=== PATIENT | female | born 1995 | race Caucasian/White ===

== ENCOUNTER 2018-12-12 01:36 | Emergency (ER) | payer OTHER, MEDICAID, SELFPAY ==
[2018-12-12 01:43] VITALS: BP 129/80; PULSE 90; RESP 18; TEMP 37; O2SAT 100
[2018-12-12] MEDS: AMOXICILLIN/CLAV 875/125 MG 1 TAB PO (01:54)
[2018-12-12] MEDS: TET,DIPH,PERTUSS(ACELL),VAC/PF 0.5 ML SYRINGE IM (01:54)
[2018-12-12] MEDS: LIDO 1%/SOD BICARB 8.4% (10ML) 10 ML SYRINGE INJ (01:54)
--- NOTE | 2018-12-12 02:08 | PC.NURSE ---
She had #2 puncture wounds on right lower calf,one medial and one lateral, cleaned the wounds and applied two sutures to medial puncture wound.
[2018-12-12 02:20] VITALS: BP 119/70; PULSE 76; RESP 18; O2SAT 99
--- NOTE | 2018-12-12 03:48 | ED_ITS ---
HPI - Animal Bite General Chief Complaint: Animal Bite Stated Complaint: HER dog bit her leg while breaking up fight Time Seen by Provider: 12/12/18 01:36 Source: patient Mode of arrival: Ambulatory Limitations: no limitations History of Present Illness HPI narrative: 23F daily smoker without significant medical history presents for evaluation of a dog bite on her left leg. Her dog and her brother's dog were fighting and she got in between them and was bitten on her leg. The dogs have been acting normal and can be observed for the next 7-10 days. She has a small amount of pain and minimal bleeding from two punctures on her left lower leg. Her tetanus is in need of updating. She is otherwise well and free of complaint. MD complaint: animal bite Onset (ago): hour(s) Animal: dog Description of animal: household pet Mechanism: bite Location - Extremities: Left: lower leg Pain description: sharp Context: animals fighting Associated symptoms: none Treatments prior to arrival: wound dressing(s) Related Data Patient tetanus UTD: No Previous Rx's Medication Instructions Recorded amoxicillin-pot clavulanate 1 tab PO BID #20 tab 12/12/18 [Augmentin] Allergies Allergy/AdvReac Type Severity Reaction Status Date / Time No Known Drug Allergies Allergy Verified 12/12/18 02:00 Review of Systems Constitutional Constitutional: Denies chills, Denies fatigue, Denies fever(s), Denies frequent falls, Denies lethargy and Denies weakness Eyes Eyes: Denies change in vision, Denies eye discharge, Denies irritation and Denies loss of vision ENT Ears, Nose, Mouth, and Throat: Denies change in voice, Denies dizziness, Denies neck pain, Denies sore throat and Denies throat swelling Cardiovascular Cardiovascular: Denies chest pain, Denies irregular heart rhythm, Denies lightheadedness, Denies palpitations, Denies dyspnea, Denies dyspnea on exertion and Denies orthopnea Respiratory Respiratory: Denies cough, Denies dyspnea, Denies dyspnea on exertion and Denies wheezing Gastrointestinal Gastrointestinal: Denies abdominal pain, Denies change in bowel habits, Denies diarrhea, Denies nausea and Denies vomiting Genitourinary Genitourinary: Denies hematuria, Denies flank pain, Denies urinary incontinence and Denies urinary urgency Musculoskeletal Musculoskeletal: Denies back pain, Denies muscle weakness, Denies neck pain, Denies numbness and Denies tingling Integumentary/Breasts Skin/Breast: Denies pruritus, Denies erythema, Denies rash and Reports wounds Neurologic Neurologic: Denies behavioral changes, Denies confusion, Denies dizziness, Denies frequent falls, Denies loss of vision, Denies numbness, Denies tingling and Denies weakness Psychiatric Psychiatric: Denies anxiety, Denies behavioral changes, Denies confusion, Denies depression, Denies homicidal ideation and Denies suicidal ideation Endocrine Endocrine: Denies fatigue, Denies flushing and Denies palpitations Hematologic/Lymphatic Hematologic/Lymphatic: Denies easy bruising Allergic/Immunologic Allergic/Immunologic: Denies urticaria, Denies throat swelling and Denies wheezing Patient History Social History Smoking Status: Current every day smoker Social History Smoking Status: Current every day smoker alcohol intake frequency: a few times a month Substance Use Type: marijuana Exam Narrative Exam Narrative: GEN: AOx3 and in mild distress EYES: Pupils are equal, round, and reactive to light and accommodation. Ex traoccular muscles are intact bilaterally. There is no subconjunctival hemorrhage or exudate. CHEST: Lungs are clear to auscultation bilaterally and free of wheezes, rales, or rhonchi. Heart rate is regular rhythm, there are no murmurs, clicks, rubs, or gallops. There is no chest wall tenderness. ABD: Abdomen is soft and nontender. There is no guarding or rebound. Bowel sounds are normal in all 4 quadrants. There is no mass or organomegaly. EXT: 2 small punctures on left lower leg. 1st is 0.5cm with no active bleeding, the second of which is 1.0cm and slightly agape and there is some exposure of subQ fat, this will need a few sutures. Full painless ROM of all extremities with no loss of sensation or strength. SKIN: Warm, pink, and dry. No erythema or rash Initial Vital Signs Initial Vital Signs: Vital Signs Temperature 98.6 F 12/12/18 01:43 Pulse Rate 90 12/12/18 01:43 Respiratory Rate 18 12/12/18 01:43 Blood Pressure 129/80 12/12/18 01:43 Pulse Oximetry 100 12/12/18 01:43 Procedures Laceration Repair Laceration 1: Site: lower extremity Side (If applicable): right Size (cm): 1.0 Description: irregular and clean Depth: simple, single layer Local Anesthetic: lidocaine 1% and with bicarb Amount of anesthesia used (mL): 3 Pre-repair: wound explored, irrigated extensively and deep structures intact Skin layer closed with: nylon Size (cm): 5-0 Number of sutures: 2 Technique: simple, interrupted Course Orders Ordered: Discontinued Medications Amoxicillin/Clavulanate Potassium (Augmentin 875-125 Mg) 1 tab PO NOW ONE Stop: 12/12/18 01:50 Last Admin: 12/12/18 01:54 Dose: 1 tab Documented by: FRANTZ Diphtheria/Tetanus/Acell Pertussis (Adacel) 0.5 ml IM .ONCE ONE Stop: 12/12/18 01:50 Last Admin: 12/12/18 01:54 Dose: 0.5 ml Documented by: FRANTZ Lidocaine/Sodium Bicarbonate (Buffered Lidocaine 10 Ml Syr) 10 ml INJ NOW ONE Stop: 12/12/18 01:52 Last Admin: 12/12/18 01:54 Dose: 10 ml Documented by: FRANTZ Vital Signs Vital signs: Vital Signs - 8 hr 12/12/18 01:43 12/12/18 02:20 Temperature 98.6 F Pulse Rate 90 76 Respiratory Rate 18 18 Blood Pressure 129/80 119/70 Pulse Oximetry 100 99 Discharge Plan Departure Patient Disposition: Home Clinical Impression: Bite by animal Dog bite Qualifiers: Encounter type: initial encounter Qualified Code(s): W54.0XXA - Bitten by dog, initial encounter Discharge Date/Time: 12/12/18 02:21 Instructions: DI for Dog Bite Activity Restrictions/Additional Instructions: Please keep the wound clean and dry to the best of your ability. Please monitor for signs of infection such as redness to the skin or increasing pain. Have the sutures removed by your doctor in about 7 days. If you are unable to get into your doctor, we would be happy to remove the sutures in that same timeframe. Prescriptions: New amoxicillin-pot clavulanate [Augmentin] 875-125 mg tablet 1 tab PO BID Qty: 20 RF: 0
== END 2018-12-12 02:21 | disposition home or self-care (01) ==
PROVIDERS: Emergency Provider Emergency Medicine
DX: S81.852A Open bite, left lower leg, initial encounter (principal); W54.0XXA Bitten by dog, initial encounter
CPT/HCPCS: 12001; 90471; 99283; 90715

== ENCOUNTER 2022-01-12 10:02 | Emergency (ER) | payer OTHER, MEDICAID, SELFPAY ==
[2022-01-12 10:16] VITALS: BP 132/84; PULSE 96; RESP 18; TEMP 38.3; O2SAT 98; BMI 18.0
--- NOTE | 2022-01-12 10:22 | DI.RAD.S_ITS ---
PROCEDURE: XR CHEST 2V INDICATIONS: cough, fever, pain right lower chest TECHNIQUE: 2 views of the chest were acquired. COMPARISON: None. FINDINGS: Surgical changes and devices: None. Lungs and pleura: Lungs are clear. No pleural effusions or pneumothorax. Mediastinum: Mediastinal contours are normal. Heart size is normal. Bones and chest wall: No suspicious bony abnormalities. Soft tissues appear unremarkable. IMPRESSION: No acute cardiopulmonary abnormality. If symptoms persist, follow-up radiographs and/or CT may be helpful for further evaluation. Dictated by: Chi Chan M.D. on 01/12/2022 at 11:12 Approved by: Chi Chan M.D. on 01/12/2022 at 11:15
[2022-01-12 10:29] VITALS: TEMP 38.3
[2022-01-12] MEDS: ACETAMINOPHEN 325 MG TABLET 975 MG PO (10:29)
[2022-01-12 11:27] LABS: Influenza A - CEPHEID Flu A POSITIVE (NEGATIVE); Influenza B - CEPHEID Flu B NEGATIVE (NEGATIVE); Respiratory Syncytial Virus Negative (Negative)
[2022-01-12 11:34] LABS: COVID-19 CEPHEID 4-PLEX PCR Negative (Negative)
[2022-01-12 12:21] VITALS: BP 114/69; PULSE 79; TEMP 36.8; O2SAT 98
--- NOTE | 2022-01-12 13:35 | ED.URI ---
HPI - URI/Sore Throat <TATIANA Be - Last Filed: 01/12/22 13:39> General Chief Complaint: Upper Respiratory Symptoms Stated Complaint: pain under LT ribs spleen feels enlarged t-1 Time Seen by Provider: 01/12/22 13:01 Source: patient Mode of arrival: Ambulatory History of Present Illness HPI Narrative: This is a 26-year-old female presents to the emergency department upper respiratory cough, congestion, states she is been exposed to influenza a. States that she is a nonsmoker, states that she has pain under her left ribs, has had a cough, muscle aches fever for the last 4 days. She denies nausea vomiting, denies urinary frequency or urgency, states that she is taken DayQuil and NyQuil and no other medications. She denies shortness of breath, chest pain, difficulty breathing or other. Related Data Home Medications Medication Instructions Recorded Confirmed fluoxetine 20 mg capsule 40 mg PO DAILY 01/12/22 01/12/22 methylphenidate HCl 20 mg 20 mg PO DAILY 01/12/22 01/12/22 tablet,extended release Allergies Allergy/AdvReac Type Severity Reaction Status Date / Time No Known Drug Allergies Allergy Verified 12/12/18 02:00 Review of Systems <TATIANA Be - Last Filed: 01/12/22 13:39> Review of Systems Narrative: Review of systems is negative for acute abnormalities unless otherwise noted in HPI Patient History <TATIANA Be - Last Filed: 01/12/22 13:39> Social History Smoking Status: Current every day smoker Smoking Status: Current every day smoker alcohol intake frequency: a few times a month Substance Use Type: marijuana Exam <TATIANA Be - Last Filed: 01/12/22 13:39> Narrative Exam Narrative: Reviewed vitals signs and nursing notes. General: cooperative, comfortable, in no acute distress, well groomed HEENT: symmetrical facial expressions, moist mucous membranes Cardiovascular: Tachycardic rate regular rhythm, no peripheral edema, warm extremities Respiratory: normal effort, able to speak in complete sentences, mildly diminished breath sounds in the left upper lobe Wet sounding cough, upper airway congestion No retractions or tachypnea. Neuro: normal speech and cognition, A&O x3, ambulatory, clear speech Psych: mental status is grossly normal, congruent mood, normal affect, pleasant and cooperative Initial Vital Signs Initial Vital Signs: Vital Signs Temperature 101 F H 01/12/22 10:16 Pulse Rate 96 H 01/12/22 10:16 Respiratory Rate 18 01/12/22 10:16 Blood Pressure 132/84 01/12/22 10:16 Pulse Oximetry 98 01/12/22 10:16 Oxygen Delivery Method 01/12/22 10:16 <Myesha Victoria DO - Last Filed: 01/26/22 10:56> Initial Vital Signs Initial Vital Signs: Vital Signs Temperature 101 F H 01/12/22 10:16 Pulse Rate 96 H 01/12/22 10:16 Respiratory Rate 18 01/12/22 10:16 Blood Pressure 132/84 01/12/22 10:16 Pulse Oximetry 98 01/12/22 10:16 Oxygen Delivery Method 01/12/22 10:16 Course <TATIANA Be - Last Filed: 01/12/22 13:39> Orders Ordered: Discontinued Medications Acetaminophen (Acetaminophen 325 Mg Tablet) 975 mg PO NOW ONE Stop: 01/12/22 10:26 Last Admin: 01/12/22 10:29 Dose: 975 mg Documented By: DEYVI Dexamethasone (Dexamethasone 10 Mg/Ml Vial) 10 mg PO NOW ONE Stop: 01/12/22 13:10 Last Admin: 01/12/22 13:41 Dose: 10 mg Documented By: DEYVI Ketorolac Tromethamine (Ketorolac 30 Mg/Ml Vial) 15 mg IM NOW ONE Stop: 01/12/22 13:10 Last Admin: 01/12/22 13:41 Dose: 15 mg Documented By: DEYVI Ondansetron HCl (Ondansetron 4 Mg Odt) 4 mg SL NOW ONE Stop: 01/12/22 13:10 Last Admin: 01/12/22 13:41 Dose: 4 mg Documented By: DEYVI Vital Signs Vital signs: Vital Signs - 8 hr 01/12/22 10:16 01/12/22 10:29 01/12/22 12:21 Temperature 101 F H 101 F H 98.3 F Pulse Rate 96 H 79 Respiratory Rate 18 Blood Pressure 132/84 114/69 Pulse Oximetry 98 98 Oxygen Delivery Method Room Air Room Air <Myesha Victoria DO - Last Filed: 01/26/22 10:56> Orders Ordered: Discontinued Medications Acetaminophen (Acetaminophen 325 Mg Tablet) 975 mg PO NOW ONE Stop: 01/12/22 10:26 Last Admin: 01/12/22 10:29 Dose: 975 mg Documented By: DEYVI Dexamethasone (Dexamethasone 10 Mg/Ml Vial) 10 mg PO NOW ONE Stop: 01/12/22 13:10 Last Admin: 01/12/22 13:41 Dose: 10 mg Documented By: DEYVI Ketorolac Tromethamine (Ketorolac 30 Mg/Ml Vial) 15 mg IM NOW ONE Stop: 01/12/22 13:10 Last Admin: 01/12/22 13:41 Dose: 15 mg Documented By: DEYVI Ondansetron HCl (Ondansetron 4 Mg Odt) 4 mg SL NOW ONE Stop: 01/12/22 13:10 Last Admin: 01/12/22 13:41 Dose: 4 mg Documented By: DEYVI Vital Signs Vital signs: Vital Signs - 8 hr 01/12/22 10:16 01/12/22 10:29 01/12/22 12:21 Temperature 101 F H 101 F H 98.3 F Pulse Rate 96 H 79 Respiratory Rate 18 Blood Pressure 132/84 114/69 Pulse Oximetry 98 98 Oxygen Delivery Method Room Air Room Air MDM - URI/Sore Throat <TATIANA Be - Last Filed: 01/12/22 13:39> Lab Data Labs: Lab Results 01/12/22 Range/Units 10:24 SARS-CoV-2 (PCR) Negative (Negative) Influenza A (RT-PCR) Flu a positive H (NEGATIVE) Influenza B (RT-PCR) Flu b negative (NEGATIVE) RSV (PCR) Negative (Negative) Imaging Data Chest x-ray: Radiologist's Impression: PROCEDURE:? XR CHEST 2V ? INDICATIONS:? cough, fever, pain right lower chest ? TECHNIQUE:? 2 views of the chest were acquired.? ? COMPARISON:? None. ? FINDINGS:? ? Surgical changes and devices:? None.? ? Lungs and pleura:? Lungs are clear.? No pleural effusions or pneumothorax.? ? Mediastinum:? Mediastinal contours are normal.? Heart size is normal.? ? Bones and chest wall:? No suspicious bony abnormalities.? Soft tissues appear unremarkable.? ? IMPRESSION:? No acute cardiopulmonary abnormality.? If symptoms persist, follow-up radiographs and/or CT may be helpful for further evaluation. ? ? Dictated by: Chi Chan M.D. on 01/12/2022 at 11:12 ? ? Approved by: Chi Chan M.D. on 01/12/2022 at 11:15 ? MDM Narrative Medical decision making narrative: This is a 26-year-old female presents to the emergency department with upper respiratory infection and symptoms for the last 4 days. Her respiratory panel is positive for influenza a, has been taking DayQuil and NyQuil at home. Chest x-ray is negative for acute cardiopulmonary abnormality, no focal opacities. Patient is without tachypnea, abnormal vital signs, hypoxia, without increased respiratory effort. She was given Decadron for inflammation, Tylenol, Zofran and Toradol for her symptoms, encouraged to use [id number] decongestants, stay hydrated. Patient states understanding, will follow-up with her PCP if she has worsening, return to the emergency department for repeat chest x-ray if she has fever and chills. Patient is appropriate and amenable to discharge home. Vital signs are stable on repeat examination is unremarkable. Patient has been informed of results. Patient has been given strict return to ER precautions for any new or worsening symptoms. Patient understands to follow up closely with outpatient providers as instructed. Patient understands plan and agrees to discharge home. All questions and concerns answered at this time. #116 - Avoidance of Antibiotic Treatment for Acute Bronchitis/Bronchiolitis [x] The patient has acute bronchitis/bronchiolitis and antibiotics were not prescribed or dispensed today. [S[employer]IS[employer]ES [employer]CE] <Myesha Victoria, - Last Filed: 01/26/22 10:56> Lab Data Labs: Lab Results 01/12/22 Range/Units 10:24 SARS-CoV-2 (PCR) Negative (Negative) Influenza A (RT-PCR) Flu a positive H (NEGATIVE) Influenza B (RT-PCR) Flu b negative (NEGATIVE) RSV (PCR) Negative (Negative) Discharge Plan Departure Patient Disposition: Home Clinical Impression: Influenza A, Bronchitis Instructions: Influenza, Acute Bronchitis Activity Restrictions/Additional Instructions: *You have been diagnosed with influenza a, this does not appear to be bacterial pneumonia at this point, I am sorry for your symptoms, hopefully the steroid will help reduce inflammation and help you feel better. Please follow-up with a primary care provider if you have an ongoing cough or return for another chest x-ray if this does not improve. Your symptoms should start to improve my today if you have been sick this long. Please stay hydrated as a priority, with a urine sample if you are concerned about possible urinary tract infection if you have abdominal pain. It is an easy test. Please take Zyrtec 20 mg at night for congestion, use Flonase nasal congestion and the steroids should help you feel better over the next 3 days. Please take ibuprofen 600 mg every 6 hours with Tylenol 650 mg for as long as you have aches and fever. I wish you the best. *What to do: *Please continue to take your regular medications as directed. [ ] New medication prescriptions sent to your pharmacy: [ ] [ ] New medication written as a paper prescription [x ] No new medications given *Please follow up with your primary care provider in 2-3 days, call for an appointment. Let them know you were seen in the Emergency Department and that we asked that you be seen for follow-up. We will electronically transmit a record of today's note if your PCP is in our system *If you do not have a primary care provider please contact [phone] to establish care with one of the [facility] primary care providers. *Return to Emergency Department if you should have any new, worsening, or concerning symptoms, such as [fever greater than 101F, chills, worsening pain, persistent vomiting or other bothersome symptoms]. Prescriptions: No Action methylphenidate HCl 20 mg tablet extended release 20 mg PO DAILY Label Comments: TAKE 1 TABLET BY MOUTH IN THE MORNING fluoxetine 20 mg capsule 40 mg PO DAILY Label Comments: TAKE 2 CAPSULES BY MOUTH ONCE DAILY Referrals: Miscellaneous,Doctor, [Primary Care Provider] - Visit Report Forms: Patient Portal/API <Myesha Victoria DO - Last Filed: 01/26/22 10:56> Cosign ED Attending [place] Attestation: I was immediately available in the department for consultation. Documentation has been reviewed.
[2022-01-12 13:39] VITALS: TEMP 37.8
[2022-01-12] MEDS: KETOROLAC 30 MG/ML VIAL 15 MG IM (13:41)
[2022-01-12] MEDS: DEXAMETHASONE 10 MG/ML VIAL PO (13:41)
[2022-01-12] MEDS: ONDANSETRON 4 MG ODT SL (13:41)
== END 2022-01-12 13:50 | disposition home or self-care (01) ==
PROVIDERS: Emergency Medicine; Emergency Provider Nurse Practitioner Critical Care Medicine
DX: J10.1 Influenza due to other identified influenza virus with other respiratory manifestations (principal); Z20.822 Contact with and (suspected) exposure to COVID-19
CPT/HCPCS: 0241U; 71046; 96372; 99283; 99284; J1100; J1885

== ENCOUNTER 2022-01-26 22:31 | Emergency (ER) | payer OTHER, MEDICAID, SELFPAY ==
[2022-01-26 22:52] VITALS: BP 130/87; PULSE 96; RESP 14; TEMP 36.4; O2SAT 99
[2022-01-26 23:02] VITALS: PULSE 92; O2SAT 96
[2022-01-26 23:02] LABS: Add Manual Diff / Slide Review NO; Basophils Absolute Auto 100 /uL (0-100); Basophils Percent Auto 1.1 % (0-2); Eosinophils Absolute Auto 100 /uL (0-450); Eosinophils Percent Auto 0.7 % (2-4); Hematocrit 35.9 % (36-46); Lymphocytes Absolute Auto 3200 /uL (1100-4500); Lymphocytes Percent Auto 32.6 % (25-40); Mean Corpuscular HGB Conc 33.3 % (30-36); Mean Corpuscular Hemoglobin 33.1 PG (26-34); Mean Corpuscular Volume 99.3 fL (80-100); Monocytes Absolute Auto 600 /uL (0-900); Monocytes Percent Auto 6.5 % (3-14); Neutrophils Absolute Auto 5800 /uL (1500-7000); Neutrophils Percent Auto 59.1 % (50-75); Platelet Count 506 X10^3/uL (150-400); Red Blood Cell Count 3.62 X10^6/uL (4.0-5.2); Red Cell Distribution Width 13.2 % (11.6-14.8); White Blood Cell Count 9.8 X10^3/uL (4.5-11.0)
[2022-01-26 23:06] LABS: Ur Creatinine 20 (Normal); Ur Specific Gravity 1.015 (Normal); Urine pH 5 (Normal)
[2022-01-26 23:07] LABS: UR Morphine/Opiate cutoff 300 Negative (Negative); Urine Amphetamines Negative (Negative); Urine Barbiturates Negative (Negative); Urine Benzodiazepines Negative (Negative); Urine Cocaine Negative (Negative); Urine MDMA Negative (Negative); Urine Methadone Negative (Negative); Urine Methamphetamines Negative (Negative); Urine Oxycodone Negative (Negative); Urine Phencyclidine Negative (Negative); Urine Tetrahydrocannabinol Negative (Negative); Urine Tricyclic Antidepressant Negative (Negative)
[2022-01-26 23:12] LABS: Acetaminophen < 10 ug/mL (10-30); Alanine Aminotransferase 32 IU/L (<35); Albumin 3.7 g/dL (3.5-5.0); Albumin Globulin Ratio 1.1 (1.0-2.8); Alkaline Phosphatase 119 U/L (38-126); Aspartate Aminotransferase 42 IU/L (14-36); BUN Creatinine Ratio 18.2 (6-22); Blood Urea Nitrogen 12 mg/dL (7-17); Calcium 8.4 mg/dL (8.4-10.2); Carbon Dioxide 25 mmol/L (22-32); Chloride 108 mmol/L (98-107); Estimated Glomerular Filt Rate > 60 mL/min (>60); Ethanol (ETOH) 183 mg/dL; Globulin 3.4 g/dL (1.7-4.1); Glucose 118 mg/dL (70-100); HEMOLYSIS < 15 (0-50); Potassium 3.5 mmol/L (3.4-5.1); Salicylate < 1.0 mg/dL (<20); Sodium 145 mmol/L (137-145); Total Protein 7.1 g/dL (6.3-8.2)
[2022-01-26 23:13] LABS: Bilirubin Total < 0.1 mg/dL (0.2-1.3)
[2022-01-26 23:30] VITALS: BP 101/53; PULSE 93; O2SAT 97
[2022-01-27] VITALS (17 sets, daily range): BP systolic 93–111; BP diastolic 51–61; PULSE 80–106; O2SAT 95–99
--- NOTE | 2022-01-27 00:26 | ED.PSYCH ---
HPI - Psych General Chief Complaint: Psychiatric Symptoms Stated Complaint: suicidal/ Time Seen by Provider: 01/26/22 22:40 Source: patient and EMS Mode of arrival: EMS History of Present Illness HPI Narrative: Patient is a 26-year-old female history of depression presenting today with suicidal ideation. She states that apparently a suicidal. She went out with friends tonight went bowling and drinking. She then sat in her car, story is a little confusing police somehow got involved she became combative saying she wanted to hurt herself although she has no specific plan. She is here tearful crying. She has a 5-year-old child whose with family friends. She has supportive friends but no close family. She does have a therapist that she sees every other week. currently cooperative Related Data Home Medications Medication Instructions Recorded Confirmed fluoxetine 20 mg capsule 40 mg PO DAILY 01/12/22 01/26/22 methylphenidate HCl 20 mg 20 mg PO DAILY 01/12/22 01/26/22 tablet,extended release Allergies Allergy/AdvReac Type Severity Reaction Status Date / Time No Known Drug Allergies Allergy Verified 01/26/22 22:57 Review of Systems Review of Systems Narrative: GENERAL: Denies chills,fever HEENT: Denies throat pain RESPIRATORY: Denies dyspnea, cough, wheezing CARDIOVASCULAR: Denies chest pain, palpitations GASTROINTESTINAL: Denies nausea, vomiting MUSCULOSKELETAL: Denies extremity pain, injury SKIN: No rash, no laceration, no pruritus NEUROLOGIC: Denies weakness, dizziness, headache, numbness 8 point review of systems is negative except for those stated above and HPI Psychiatric Psychiatric: Reports as per HPI Patient History Social History Smoking Status: Current every day smoker Smoking Status: Current every day smoker alcohol intake frequency: a few times a month Substance Use Type: marijuana Exam Initial Vital Signs Initial Vital Signs: Vital Signs Temperature 97.6 F 01/26/22 22:52 Pulse Rate 96 H 01/26/22 22:52 Respiratory Rate 14 01/26/22 22:52 Blood Pressure 130/87 01/26/22 22:52 Pulse Oximetry 99 01/26/22 22:52 Oxygen Delivery Method 01/26/22 22:52 GENERAL: Sleeping but arousable 26-year-old HEENT: Head atraumatic,EOMI, pupils reactive, mild slurring of words CARDIOVASCULAR: Regular rate and rhythm without murmurs, rubs or gallops. RESPIRATORY: Breath sounds equal bilaterally, no wheezes rales or rhonchi. ABDOMEN: Soft, nontender. Normoactive bowel sounds all 4 quadrants. No guarding or rebound. EXTREMITIES: Normal range of motion, no clubbing or edema. Neurovascularly intact NEUROLOGICAL: Alert and oriented x4. SKIN: Warm, dry, no laceration, no petechiae, no rashes or lesions. Course Orders Ordered: ED Orders 01/26/22 22:45 [place] [facility] [place] [facility] Urine Drug Screen, Rapid Stat 01/26/22 22:50 Acetaminophen Stat Complete Blood Count AUTO DIFF Stat Comprehensive Metabolic Panel Stat Ethanol (ETOH) Stat Salicylate Stat Vital Signs Vital signs: Vital Signs - 8 hr 01/26/22 22:52 01/26/22 23:02 01/26/22 23:30 Temperature 97.6 F Pulse Rate 96 H 92 H Respiratory Rate 14 Blood Pressure 130/87 101/53 L Pulse Oximetry 99 96 Oxygen Delivery Method Room Air 01/26/22 23:30 01/27/22 00:00 01/27/22 00:00 Temperature Pulse Rate 93 H 94 H Respiratory Rate Blood Pressure 102/51 L Pulse Oximetry 97 96 Oxygen Delivery Method 01/27/22 00:30 01/27/22 00:30 01/27/22 01:00 Temperature Pulse Rate 91 H Respiratory Rate Blood Pressure 101/56 L 105/56 L Pulse Oximetry 97 Oxygen Delivery Method 01/27/22 01:00 01/27/22 01:30 01/27/22 01:30 Temperature Pulse Rate 92 H 88 Respiratory Rate Blood Pressure 93/51 L Pulse Oximetry 96 95 Oxygen Delivery Method 01/27/22 02:00 01/27/22 02:01 01/27/22 02:04 Temperature Pulse Rate 86 87 Respiratory Rate Blood Pressure 100/61 Pulse Oximetry 95 97 Oxygen Delivery Method 01/27/22 02:04 01/27/22 02:30 01/27/22 02:30 Temperature Pulse Rate 87 87 Respiratory Rate Blood Pressure 111/59 L Pulse Oximetry 97 95 Oxygen Delivery Method 01/27/22 03:00 01/27/22 03:00 01/27/22 03:30 Temperature Pulse Rate 91 H Respiratory Rate Blood Pressure 103/58 L 104/59 L Pulse Oximetry 97 Oxygen Delivery Method 01/27/22 03:30 01/27/22 04:00 Temperature Pulse Rate 90 80 Respiratory Rate Blood Pressure Pulse Oximetry 96 96 Oxygen Delivery Method MDM - Psych Lab Data Result diagrams: 01/26/22 22:50 01/26/22 22:50 Labs: Lab Results 01/26/22 01/26/22 01/26/22 Range/Units 22:45 22:50 22:50 WBC 9.8 (4.5-11.0) X10^3/uL RBC 3.62 L (4.0-5.2) X10^6/uL Hgb 12.0 (12.0-16.0) g/dL Hct 35.9 L (36-46) % MCV 99.3 (80-100) fL MCH 33.1 (26-34) PG MCHC 33.3 (30-36) % RDW 13.2 (11.6-14.8) % Plt Count 506 H (150-400) X10^3/uL Neut % (Auto) 59.1 (50-75) % Lymph % (Auto) 32.6 (25-40) % [place] % (Auto) 6.5 (3-14) % Eos % (Auto) 0.7 L (2-4) % Baso % (Auto) 1.1 (0-2) % Neut # (Auto) 5800 (5820-0030) /uL Lymph # (Auto) 3200 (9514-5503) /uL [place] # (Auto) 600 (0-900) /uL Eos # (Auto) 100 (0-450) /uL Baso # (Auto) 100 (0-100) /uL Sodium 145 (137-145) mmol/L Potassium 3.5 (3.4-5.1) mmol/L Chloride 108 H (98-107) mmol/L Carbon Dioxide 25 (22-32) mmol/L BUN 12 (7-17) mg/dL Creatinine 0.66 (0.52-1.04) mg/dL Estimated GFR > 60 (>60) mL/min BUN/Creatinine Ratio 18.2 (6-22) Glucose 118 H (70-100) mg/dL Calcium 8.4 (8.4-10.2) mg/dL Total Bilirubin < 0.1 L (0.2-1.3) mg/dL AST 42 H (14-36) IU/L ALT 32 (<35) IU/L Alkaline Phosphatase 119 (38-126) U/L Total Protein 7.1 (6.3-8.2) g/dL Albumin 3.7 (3.5-5.0) g/dL Globulin 3.4 (1.7-4.1) g/dL Albumin/Globulin Ratio 1.1 (1.0-2.8) Salicylates < 1.0 (<20) mg/dL U Opiates 300ng/mL cut Negative (Negative) Ur Oxycodone Screen Negative (Negative) Urine Methadone Screen Negative (Negative) Acetaminophen < 10 (10-30) ug/mL Ur Barbiturates Screen Negative (Negative) U Tricyclic Antidepress Negative (Negative) Ur Phencyclidine Scrn Negative (Negative) Ur Amphetamines Screen Negative (Negative) U Methamphetamines Scrn Negative (Negative) Ur MDMA Scrn (Ecstasy) Negative (Negative) U Benzodiazepines Scrn Negative (Negative) Urine Cocaine Screen Negative (Negative) U Marijuana (THC) Screen Negative (Negative) Ethyl Alcohol 183 H ( - 10) mg/dL Point of Care Testing Test Results Negative Urine Dip Bedside Urine Glucose Negative Bedside Urine Bilirubin - Negative Bedside Urine Ketone - Negative Urine Specific Glenn 1.010 Bedside Urine Occult Blood - Negative Bedside Urine pH 6.0 Bedside Urine Protein - Negative Bedside Urine Urobilinogen - Negative Bedside Urine Nitrite - Negative Bedside Urine Leukocytes - Negative Esterase MDM Narrative Medical decision making narrative: Patient sleeping waking up much more awake appropriate ambulatory to the restroom. Not suicidal not homicidal. States she [facility] some woman who works there took her home. Somehow the police got involved and she got aggressive with police. She has restraining order against her ex-girlfriend. His her daughter is safe with friends. She overall feels well. She states that she has daily suicidal thoughts with has never and will never act on it due to her daughter. Patient is clinically sober arranging for a ride. At this time no need for further emergency department treatment Discharge Plan Departure Patient Disposition: Home Clinical Impression: Alcohol intoxication Instructions: Alcohol Use Disorder Activity Restrictions/Additional Instructions: *You have been diagnosed with alcohol intoxication *What to do: If you are feeling suicidal or having suicidal thoughts: Call: Suicide Hotline: 396 Visit: www.[employer].org Text: 255083 *Continue to take medications as directed *Follow up with your primary care provider in 2-3 days or call [phone] *Return to ER if you should have increasing thoughts of suicide depression, or any new, worsening or concerning symptoms Prescriptions: No Action methylphenidate HCl 20 mg tablet extended release 20 mg PO DAILY Label Comments: TAKE 1 TABLET BY MOUTH IN THE MORNING fluoxetine 20 mg capsule 40 mg PO DAILY Label Comments: TAKE 2 CAPSULES BY MOUTH ONCE DAILY Referrals: Miscellaneous,Doctor, MD [Primary Care Provider] -
== END 2022-01-27 07:30 | disposition home or self-care (01) ==
PROVIDERS: Emergency Provider Emergency Medicine
DX: F10.129 Alcohol abuse with intoxication, unspecified (principal); Y90.6 Blood alcohol level of 120-199 mg/100 ml
CPT/HCPCS: 36415; 80053; 80305; 80320; 80329; 81003; 81025; 85025; 99284; G0480

== ENCOUNTER 2022-04-13 23:11 | Emergency (ER) | payer OTHER, MEDICAID, SELFPAY ==
[2022-04-13 23:21] VITALS: BP 159/88; PULSE 67; RESP 16; TEMP 37.1; O2SAT 100; BMI 20.2
--- NOTE | 2022-04-14 00:08 | PC.NURSE ---
Pt was attempting to cut a zip tie with an exacto knife when she cut herself. Pt unsure of last tetanus.
[2022-04-14] MEDS: TET,DIPH,PERTUSS(ACELL),VAC/PF 0.5 ML SYRINGE IM (00:20)
[2022-04-14] MEDS: LIDOCAINE 2% INJ SDV 5ML 5 ML INJ (00:29)
--- NOTE | 2022-04-14 01:11 | PC.NURSE ---
0109: PICC RN Stacy from outside agency reports pt having sudden onset chest pain. This RN to check on pt. Pt reporting really bad chest pressure at sternum. Chest x-ray to confirm placement done at this time. Provider aware and at bedside. PICC line adjusted. Provider remains at bedside.
--- NOTE | 2022-04-14 02:07 | ED_ITS ---
HPI - Extremity Injury (Upper) General Chief Complaint: Extremity Injury, Upper Stated Complaint: LT. HAND LACERATION Time Seen by Provider: 04/14/22 01:32 Source: patient Mode of arrival: Ambulatory Limitations: no limitations History of Present Illness HPI narrative: This is a 26-year-old female who takes medication for anxiety and ADHD, she was trying to open a package today and cut her left hand with exact patient is right-hand dominant. She states laceration. No numbness, no tingling full range of motion. It is capped. Patient denies any other injuries. She denies any other medical issues. Denies any other medical issues. Denies any major surgeries. No known drug allergies. Patient was unsure of her tetanus status she does vape tobacco. Related Data Home Medications Medication Instructions Recorded Confirmed fluoxetine 20 mg capsule 40 mg PO DAILY 01/12/22 01/26/22 methylphenidate HCl 20 mg 20 mg PO DAILY 01/12/22 01/26/22 tablet,extended release Allergies Allergy/AdvReac Type Severity Reaction Status Date / Time No Known Drug Allergies Allergy Verified 01/26/22 22:57 Review of Systems Review of Systems ROS Unobtainable: All systems reviewed & are unremarkable except as noted in HPI and below Patient History Social History Smoking Status: Current every day smoker Smoking Status: Current every day smoker alcohol intake frequency: a few times a month Substance Use Type: marijuana Exam Narrative Exam Narrative: GENERAL: Alert and oriented x three, female in mild distress. HEENT: Head normocephalic, atraumatic, EOMI, pupils reactive, face symmetric, moist mucous membranes NECK: Supple, full range of motion EXTREMITIES: Normal range of motion, no clubbing or edema. Neurovascularly intact. Patient has a 3.7 cm laceration has a dorsum of her hand extending across the 2nd proximal metacarpal phalangeal joint and just proximal to the 2nd and 3rd. It is gapped completely through the skin but subcutaneous structures appear intact otherwise no tendon or ligament involvement. No active bleeding. Patient has full range of motion. No numbness, tingling. Cap refills less than 2 seconds in all 5 fingers. NEUROLOGICAL: Cranial nerves II through XII grossly intact. Moving all extremities SKIN: Warm, dry, no petechiae, no rashes or lesions otherwise noted. Initial Vital Signs Initial Vital Signs: Vital Signs Temperature 98.7 F 04/13/22 23:21 Pulse Rate 67 04/13/22 23:21 Respiratory Rate 16 04/13/22 23:21 Blood Pressure 159/88 H 04/13/22 23:21 Pulse Oximetry 100 04/13/22 23:21 Oxygen Delivery Method 04/13/22 23:21 Procedures Laceration Repair Laceration 1: Time of procedure: 02:39 Site: hand Side (If applicable): left Size (cm): 3.7 Description: linear Depth: simple, single layer Local Anesthetic: lidocaine 2% Amount of anesthesia used (mL): 2.5 Pre-repair: wound explored, irrigated extensively and deep structures intact Skin layer closed with: nylon Skin layer suture size: 4-0 Number of sutures: 5 Technique: simple, interrupted Course Orders Ordered: Discontinued Medications Bacitracin (Bacitracin Oint 0.9 Gm Pckt) 1 applic TOP NOW ONE Stop: 04/14/22 02:50 Last Admin: 04/14/22 02:45 Dose: 1 applic Documented By: HNG Diphtheria/Tetanus/Acell Pertussis (Tet,Diph,Pertuss(Acell),Vac/Pf 0.5 Ml Syringe) 0.5 ml IM .ONCE ONE Stop: 04/14/22 00:17 Last Admin: 04/14/22 00:20 Dose: 0.5 ml Documented By: TEETEE Lidocaine HCl (Lidocaine 2% Inj Sdv 5ml) 5 ml INJ INTRA-OP ONE Stop: 04/14/22 00:27 Last Admin: 04/14/22 00:29 Dose: 5 ml Documented By: SB Vital Signs Vital signs: Vital Signs - 8 hr 04/13/22 23:21 Temperature 98.7 F Pulse Rate 67 Respiratory Rate 16 Blood Pressure 159/88 H Pulse Oximetry 100 Oxygen Delivery Method Room Air MDM - Extremity Injury (Upper) MDM Narrative Medical decision making narrative: This is a 26-year-old female with laceration of the dorsum of her left hand. Patient has suture repair, patient was placed in splint as it is over joint to help prevent and remind patient not to flex or polar open her sutures. Wound care directions as well as skin care were discussed return precautions and all questions answered. Patient's tetanus was updated today. Discharge Plan Departure Patient Disposition: Home Clinical Impression: Laceration of hand Instructions: DI for Laceration Repair Activity Restrictions/Additional Instructions: Wear splint to remind yourself not to bend your fingers or at the knuckles as this will pull/tug at your sutures and can cause them to break. Wound Care: Keep wound(s) clean and dry. Wash twice daily with soap and water only. Do not use over the counter products (alcohol or peroxide)on the wounds unless instructed by a physician, you may use triple antibiotic ointment to the affected area twice daily. If wound condition worsens (increased/expanding redness, developing fluid blisters, or worsening pain), either contact your doctor for an urgent re- assessment , or return to the Emergency Department. Return to the Emergency Department for any new or worsening symptoms. Return to the ED, urgent care, or vist a primary care doctor for removal or suture or shashank in 7-10 days Return if fever greater than 100.4 Fahrenheit, increased swelling, increasing pain or worsening symptoms such as increased discharge or spreading redness. Prescriptions: No Action methylphenidate HCl 20 mg tablet extended release 20 mg PO DAILY Label Comments: TAKE 1 TABLET BY MOUTH IN THE MORNING fluoxetine 20 mg capsule 40 mg PO DAILY Label Comments: TAKE 2 CAPSULES BY MOUTH ONCE DAILY Referrals: Miscellaneous,Doctor, MD [Primary Care Provider] - Stand Alone Forms: Patient Portal/API
[2022-04-14] MEDS: BACITRACIN OINT 0.9 GM PCKT 1 APPLIC TOP (02:45)
== END 2022-04-14 03:05 | disposition home or self-care (01) ==
PROVIDERS: Emergency Provider Emergency Medicine
DX: S61.412A Laceration without foreign body of left hand, initial encounter (principal); W26.0XXA Contact with knife, initial encounter; Z23 Encounter for immunization
CPT/HCPCS: 12002; 29130; 90471; 99283; 90715